=== PATIENT | male | born 1990 | race Two or more races ===

== ENCOUNTER 2020-09-04 16:33 | Emergency (ER) | payer MEDICAID ==
[~2020-09-04] VITALS: Ht 182.9 cm; Wt 100.0 kg
[2020-09-04 16:43] VITALS: BP 142/78
[2020-09-04] MEDS ORDERED: LORAZEPAM 0.5MG TABLET PO ONE (17:15)
[2020-09-04] MEDS ORDERED: SODIUM CHLORIDE 0.9% 1,000 ML IV ONE (17:15)
[2020-09-04 17:27] LABS: BASOPHILS % 0.7 % (0.0-2.0); EOSINOPHILS % 2.1 % (0.0-5.0); HEMATOCRIT. 45.6 % (42.0-52.0); HEMOGLOBIN. 15.6 g/dL (14.0-18.0); LYMPHOCYTES % 18.8 % (20.0-50.0); MEAN CORPUSCULAR HEMOGLOBIN 31.5 pg (28.0-32.0); MEAN CORPUSCULAR VOLUME 92.1 fL (80.0-94.0); MEAN PLATELET VOLUME 9.3 fl (7.4-10.4); MONOCYTES % 5.5 % (2.0-8.0); NEUTROPHILS % 72.9 % (40.0-76.0); PLATELET 186 x1000/uL (130-400); RED BLOOD CELL COUNT 4.96 mill/uL (4.7-6.1); RED CELL DISTRIBUTION WIDTH 13.9 % (11.6-14.6)
[2020-09-04 17:34] LABS: CHLORIDE 100 mEq/L (98-107)
[2020-09-04 17:42] LABS: CREATINE KINASE 330 IU/L (39-308)
[2020-09-04] MEDS ORDERED: LORA-249 MT (18:20)
== END 2020-09-04 18:39 | disposition home or self-care (01) ==
LOC: ER 16:33 → EDSEX 16:33 → ER 18:39
DX: F41.9 Anxiety disorder, unspecified (principal); F17.200 Nicotine dependence, unspecified, uncomplicated
CPT/HCPCS: 36415; 80053; 82550; 84484; 85025; 93005; 99284; J7030